=== PATIENT | male | born 1970 | race Caucasian/White ===

== ENCOUNTER → 2024-08-29 08:36 | Outpatient (REF) | payer BC, SELFPAY | LOC: HWRAD 08:36 | PROVIDERS: ATTENDING PHYSICIAN Nurse Practitioner | DX: Z87.891 Personal history of nicotine dependence (principal) | CPT/HCPCS: 71271 ==

== ENCOUNTER 2024-10-17 06:25 | Day surgery (SDC) | payer BC, SELFPAY | END 2024-10-17 08:33 | disposition home or self-care (01) | LOC: GI 06:25 | PROVIDERS: ATTENDING PHYSICIAN Internal Medicine Gastroenterology | DX: Z12.11 Encounter for screening for malignant neoplasm of colon (principal); K64.8 Other hemorrhoids | CPT/HCPCS: G0121 ==

== ENCOUNTER 2025-03-07 11:33 | Day surgery (SDC) | payer BC, SELFPAY ==
[2025-03-07] VITALS (8 sets, daily range): BP systolic 104–133; BP diastolic 69–94; BMI 27.9
[2025-03-07 06:37] LABS: Urine Albumin 2+ (Neg - Trace); Urine Bilirubin Negative (Negative); Urine Character Clear (Clear); Urine Color Yellow; Urine Glucose Negative (Negative); Urine Ketone 1+ (Negative); Urine Leukocyte 1+ (Negative); Urine Nitrite Negative (Negative); Urine Occult Blood 1+ (Negative); Urine Urobilinogen 1+ (Neg - 1+)
[2025-03-07 06:43] LABS: % Basophils 0.2 % (0-2); % Eosinophils 0.2 % (0-6); % Immature Granulocytes 0.5 % (0-0.5); % Lymphocytes 8.1 % (20.5-51.1); % Monocytes 10.2 % (1.7-9.3); % Neutrophils 80.8 % (42.2-75.2); Absolute Immature Granulocytes 0.1 10^3/uL (0-0.05); Absolute Lymphocytes 1.4 10^3/uL (1.2-3.4); Absolute Monocytes 1.8 10^3/uL (0.1-0.6); Absolute Neutrophils 14.4 10^3/uL (1.4-6.5); Hematocrit 42.3 % (39.0-52.0); Hemoglobin 15.1 g/dL (13.0-18.0); Mean Corp Hgb Conc. 35.7 g/dL (33.0-37.0); Mean Corpuscular Volume 89.6 fL (80.0-94.0); Mean Platelet Volume 10.6 fL (7.4-10.4); Nucleated Red Blood Cells % 0 % (-); Platelet Count 237 10^3/uL (130-400); Red Blood Cell Count 4.72 10^6/uL (4.70-6.10); Red Cell Dist. Width 11.9 % (11.5-14.5); White Blood Cell Count 17.8 10^3/uL (4.8-10.8)
[2025-03-07 06:48] LABS: Urine Bacteria Few (Negative); Urine Mucus Many; Urine Red Blood Cell 0-2 /HPF (0-2); Urine Squamous Cell 0-2 /LPF (Few)
[2025-03-07 06:54] LABS: ALT (SGPT) 29 U/L (0-50); AST (SGOT) 22 U/L (17-59); Albumin 4.9 g/dl (3.5-5.0); Alkaline Phosphatase 91 U/L (38-126); Blood Urea Nitrogen 10 mg/dl (9-20); Calcium 9.9 mg/dl (8.4-10.2); Carbon Dioxide 23 mmol/L (22-30); Chloride 107 mmol/L (98-107); Glucose 133 mg/dl (70-99); Lipase 61 U/L (23-300); Potassium 4.1 mmol/L (3.5-5.1); Sodium 140 mmol/L (135-145); Total Bilirubin 1.6 mg/dl (0.2-1.3); Total Protein 7.9 g/dl (6.3-8.2); eGFR > 60.00
--- NOTE | 2025-03-07 07:50 | ED.GENMED ---
History of Present Illness
General
Chief Complaint: Abdominal Pain
Time Seen by Provider: 03/07/25 07:41
History of Present Illness
History of Present Illness:
Patient is a 54-year-old male with past medical history of hyperlipidemia and prior tobacco use for greater than 25 years recently quit 1 year ago here today for evaluation of approximately 2 days of right-sided abdominal discomfort that is fairly
constant and worsening overall associated with mild nausea and loss of appetite. No fevers. No cough, rhinorrhea, or sore throat. No vomiting. No diarrhea. No urinary symptoms. No prior abdominal surgeries. He has never had similar symptoms
previously. He does report this past weekend he was drinking alcohol more than normal and eating unhealthy foods but typically he does not drink alcohol. No other acute complaints.
Past History
Past History
ED Past Medical History: Other (bilateral carpal tunnel: Has appt. tomorrow for preop for OR for surgery.)
ED Past Surgical History: None
Social History
Tobacco: Smoker
Alcohol: Occasional
Personal:
Living: alone
Employment: Employed
Review of Systems
Review of Systems
All Other Systems: ROS reviewed and negative except as documented in HPI and ROS
Phy Exam
Physical Exam
Physical Exam:
GENERAL: Alert , in no apparent distress
EYE: pupils equal and reactive
NECK: Supple, no significant adenopathy.
ENT: o/p clr, mmm.
CARDIAC: Regular rate and rhythm .
LUNGS: Clear breath sounds bilaterally, no acute respiratory distress, no wheezes/rales/rhonchi
ABDOMEN: Soft, there is moderate tenderness to palpation along the right middle and right lower quadrant of the abdomen, there is no rebound or guarding, there is no tenderness along the right upper quadrant, negative Bridges sign
NEUROLOGICAL: Alert and oriented, no focal neuro deficits
SKIN: Warm and dry, skin intact.
MUSCULOSKELETAL: No edema, well perfused.
PSYCH: Normal and appropriate interaction.
Course
Orders/Labs/Results
Orders:
Orders
03/07/25 06:09
IV Insert/Care/Rem.- Treatment PRN
Straight cath- Treatment ONCE
03/07/25 06:12
Complete Blood Count/With Diff Urgent
Urinalysis Reflex To Culture Urgent
Date Specimen was Collected: 03/07/25
Time Specimen was Collected: 06:09
Urine Microscopic Reflex Cult Urgent
Urine Culture Urgent
CAITY Source: U
Specimen Description:
Date Specimen was Collected: 03/07/25
Time Specimen was Collected: 06:09
03/07/25 06:13
Comprehensive Metabolic Panel Urgent
Lipase Urgent
03/07/25 06:39
Electrocardiogram (*1) Urgent
Reason for Study: Abdominal Pain
EKG- Treatment ONCE
03/07/25 07:49
CT Abd/pelvis W Iv Cont Urgent
Comment:
Reason For Exam: rlq pain, nausea, concern for appe
03/07/25 09:33
Piperacillin/Tazo 3.375 Gram [Zosyn] 3.375 gram in 50 ml IV NOW
Abnormal Lab Results
03/07/25 03/07/25
06:12 06:13
WBC 17.8 H 10^3/uL
(4.8-10.8)
MCH 32.0 H pg
(27.0-31.0)
MPV 10.6 H fL
(7.4-10.4)
Abs Immat Gran (auto) 0.1 H 10^3/uL
(0-0.05)
Absolute Neuts (auto) 14.4 H 10^3/uL
(1.4-6.5)
Absolute Monos (auto) 1.8 H 10^3/uL
(0.1-0.6)
Neutrophils % 80.8 H %
(42.2-75.2)
Lymphocytes % 8.1 L %
(20.5-51.1)
Monocytes % 10.2 H %
(1.7-9.3)
Glucose 133 H mg/dl
(70-99)
Total Bilirubin 1.6 H mg/dl
(0.2-1.3)
Urine Ketones 1+ A
(Negative)
Ur Occult Blood Reflex 1+ A
(Negative)
Leukocyte Esterase Rfl 1+ A
(Negative)
Urine Bacteria (Reflex) Few A
(Negative)
Urine Albumin (Reflex) 2+ A
(Neg - Trace)
03/07/25 06:12
03/07/25 06:13
Vital Signs
Initial and Last Documented VS:
Initial Vital Signs
Temp Pulse Resp BP Pulse Ox
99.4 F 128 20 127/87 98
03/07/25 06:02 03/07/25 06:02 03/07/25 06:02 03/07/25 06:02 03/07/25 06:02
Last Documented Vital Signs
Temp Pulse Resp BP Pulse Ox
99.4 F 104 18 118/89 96
03/07/25 06:02 03/07/25 10:14 03/07/25 10:14 03/07/25 10:14 03/07/25 10:14
MDM/Problems Addressed
Differential Diagnosis Includes:
Patient is a 54-year-old male with past medical history of hyperlipidemia and prior tobacco use for greater than 25 years recently quit 1 year ago here today for evaluation of approximately 2 days of right-sided abdominal discomfort. Overall,
patient appears very well. Vital signs remarkable for an elevated heart rate. Physical examination described above. A workup was initiated in triage which is remarkable for a leukocytosis of 17.8 thousand. There is neutrophil predominance.
Glucose 133. Total bilirubin 1.6. Normal LFTs, alkaline phosphatase, and lipase. Urinalysis with mild ketonuria and microscopic hematuria as well as leukocyte esterase and few bacteria. A right upper quadrant ultrasound was ordered however I am
concerned for acute appendicitis given patient's exam findings. We will cancel the ultrasound and change the imaging study to a CT of the abdomen and pelvis with IV contrast. The patient declines wanting antiemetics or analgesia at this time.
Will continue to monitor and reassess.
03/07/2025 0947: CT reveals findings of acute uncomplicated appendicitis. Case was discussed with general surgery, Dr. Beyer, who recommends antibiotics and operative intervention for appendectomy. NPO.
*Critical Care Note
Total Time (30-74mins, 75-104mins- exclusive of procedures): Not Applicable
ED Attending Note
-
Portions of this chart may have been created with voice recognition software.� Occasional wrong word or��sound alike� substitutions may have occurred due to the inherent limitations of voice recognition software.
Discharge Plan
Departure
Patient Disposition: Admit
Date of Disposition: 03/07/25
Time of Disposition: 09:36
Admit to: OR
Admit to doctor: Naman Beyer
Presentation/result/management discussed w/ accepting MD/DO: Naman Beyer, Surgery
Patient with high blood pressure during this ER visit?: No
Condition: Fair
Covid-19: Not Applicable
Discharge Problem:
Acute appendicitis
Prescriptions:
No Action
No Current Medications
0
Referrals:
UNKNOWN - PT DOES,NOT KNOW [Family Provider]
Interventions
Interventions:
*Risk Screen - Suicide Last Done: 03/07/25 06:02
*General Assessment Last Done: 03/07/25 06:02
*Neglect/Abuse Screening Last Done: 03/07/25 06:02
*ED- Fall Risk Assessment Last Done: 03/07/25 06:02
*ED COVID-19 Vaccine History Last Done: 03/07/25 06:02
Discharge Date and Time
Print Language: AFGHAN
[2025-03-07] MEDS: ZOSYN 50 IV (10:50)
--- NOTE | 2025-03-07 10:50 | CM ---
Reviewed the chart notes and spoke with the patient at the bedside. The patient's mother resides with him in a two story home with two steps to enter. The patient reports no DME/VN/SNF in the past. The patient confirmed his [facility] choice [facility]. CM continues to be available to patient/family and is monitoring medical plan for needs at discharge.
Plan: Discharge plans will depend on the patient's progress.
--- NOTE | 2025-03-07 11:30 | HPS.HSE ---
Family Physician
-
Family Physician: NOT KNOW UNKNOWN - PT DOES
Chief Complaint
-
RLQ pain
History of Present Illness
54 yo male with a h/o rotator cuff and carpal tunnel surgery who presents with RLQ abdominal pain x2 days with associated tenderness on exam. He denies nausea, vomiting, fevers or chills.
Medical History
Past Medical History
Past Medical History: Reports None
Past Surgical History: Reports Orthopedic (Rotator cuff x2, carpal tunnel x2)
Social History
Tobacco: Former Smoker
Alcohol: Occasional
Family History
Family History: Not pertinent
Allergies / Home Medications
Allergies reflects when Allergies were last updated in [employer].
Home Medications with original date entered in [employer]
Allergy/Medication List:
Patient Allergies
Allergy/AdvReac Type Severity Reaction Status Date / Time
No Known Allergies Allergy Verified 03/07/25 06:08
�Medication �Instructions �Recorded �Confirmed �Type
No Meds [No Current Medications] 03/07/25 03/07/25 History
Review of Systems
-
History Source: Patient
A 12 point ROS was completed and negative except as noted: No
Physical Exam
Vital Signs
Vital Signs
Temp Pulse Resp BP Pulse Ox
99.4 F 104 18 118/89 96
03/07/25 06:02 03/07/25 10:14 03/07/25 10:14 03/07/25 10:14 03/07/25 10:14
Physical Exam
General: Well Developed and Well Nourished
HEENT: Moist mucous membranes
Respiratory: Non Labored Respirations
GI: Soft, Non Distended and Tender (RLQ)
Skin: Warm and Dry
Neuro: Awake, Alert and AO x 3
Psych: Calm
Laboratory Results
-
03/07/25 06:12
03/07/25 06:13
Laboratory Results
Total Bilirubin 1.6 mg/dl (0.2-1.3) H 03/07/25 06:13
AST 22 U/L (17-59) 03/07/25 06:13
ALT 29 U/L (0-50) 03/07/25 06:13
Alkaline Phosphatase 91 U/L (38-126) 03/07/25 06:13
Lipase 61 U/L (23-300) 03/07/25 06:13
Data Reviewed
-
CT Scan: Image Personally Visualized and interpreted, Report Reviewed by me, Discussed with Physician and Discussed with Patient
Lab Data: Labs Reviewed by me, Discussed with Physician, Discussed with Patient and Discussed with Family
Old Records: Reviewed
Impression/Plan
-
IMPRESSION: 54 yo male presenting with 2 days of RLQ abdominal pain. Leukocytosis noted on labs with CT imaging and exam consistent with acute appendicitis. Mild tachycardia, afebrile with stable blood pressure.
PLAN:
IV zosyn given in ED x1
NPO for OR today for lap appi
Tentative d/c after surgery pending operative findings
--- NOTE | 2025-03-07 12:34 | OR.RPT ---
Operative Report
Operative Report
Primary Surgeon: Kayleen
Assisting: Arnel FARIA
Pre-op Diagnosis: Acute appendicitis
Post-op Diagnosis: Same
Procedure Performed: Laparoscopic appendectomy
Anesthesia Type: GETA
Specimen / Cultures: Appendix
Estimated Blood Loss: 15cc
Complications: None immediate
Operative Findings: Severely inflamed retrocecal appendix with small amount of yellow pus
Date of Surgery: 03/07/25
Indications: This 54M developed right lower quadrant abdominal pain and on workup was found to have acute appendicitis. Laparoscopic appendectomy was elected.
Description of procedure: The patient was placed on the operating table in the supine position. General anesthesia was induced. A time-out was completed verifying correct patient, procedure, site, positioning, and special equipment prior to
beginning this procedure. An orogastric tube was placed. The abdomen was prepped and draped in the usual sterile fashion. A stab incision was made in left upper quadrant and the Veress needle was inserted. Proper position was confirmed by aspiration
and saline meniscus test. The abdomen was insufflated with carbon dioxide to a pressure of 12 mmHg. The patient tolerated insufflation well.
A 5mm optical trocar was then inserted at the left lower quadrant. The laparoscope was inserted and the abdomen inspected. No injuries from initial trocar placement or Veress needle insertion were noted. Additional trocars were then inserted in the
following locations: a 12-mm trocar at the umbilicus and a 5-mm trocar midline in the suprapubic space. The abdomen was inspected and no abnormalities were found. The table was placed in the Trendelenburg position with the right side up. The
appendix was severely inflamed and densely adherent to the cecum in retrocecal position. The right colon was gently mobilized off the right abdominal wall with the voyant device along the avascular plane. The base of the appendix was identified and
a window was created buntly between the appendix and its mesentery. Following this, a laparoscopic linear cutting stapler with a 45mm neri load was deployed and used to transect the appendix at its base. The base of the appendix was gently grasped
with an atraumatic grasper and retracted toward the patient�s feet and abdominal wall. This alows control of the apendixceal mesentery with the voyant device as the appendix was gently bluntly liberated from the colon in a cephalad direction. Near
the tip a small amount of pus was released when the oyant jaws closed on the mesentery. The appendix was ultimately liberated and placed in an endoscopic retrieval bag, removed through the umbilical port, and passed off the table as a specimen.
We then turned our attention to the staple line, a small ooze was noted. A raytec was used to apply direct pressure for a minute and after this the area was hemostatic. The area was irrigated with sterile saline and the pelvis was similarly
irrigated. All free fluid was suctioned. The umbilical trocar site was closed at the fascial level laparoscopically with 2-0 PDS under direct vision. Secondary trocars were removed under direct vision and noted to be hemostatic. The laparoscope was
withdrawn and the abdomen was allowed to collapse. The skin was closed with subcuticular sutures of 4-0 monocryl and topical skin adhesive. The orogastric tube was removed.
The patient tolerated the procedure well and was taken to the postanesthesia care unit in stable condition.
The assistance of Arnel FARIA was required due to the complexity of the procedure. During the procedure she assisted with retraction, resection, and closure of the wound.
== END 2025-03-07 14:00 | disposition home or self-care (01) ==
LOC: SDS 11:33
PROVIDERS: Emergency Medicine; ATTENDING PHYSICIAN Surgery; EMERGENCY PHYSICIAN Emergency Medicine
DX: K35.33 Acute appendicitis with perforation, localized peritonitis, and gangrene, with abscess (principal)
CPT/HCPCS: 44970; 88304; 74177; 80053; 81003; 81015; 83690; 85025; 87086; 93005; 96365; 99285; C1776; Q9967